=== PATIENT | male | born 1945 | race Caucasian/White ===

== ENCOUNTER 2021-10-21 13:09 | Outpatient (CLI) | payer MEDICARE, OTHER ==
[~2021-10-21 13:09] MED LIST: Magnevist 469MG/ML 20 ML VIAL ONE
== END 2021-10-21 13:10 | disposition home or self-care (01) ==
LOC: CSHMRI 13:09
PROVIDERS: ATTEND Otolaryngology Plastic Surgery within the Head & Neck
DX: Z01.818 Encounter for other preprocedural examination (principal); G44.009 Cluster headache syndrome, unspecified, not intractable; R22.1 Localized swelling, mass and lump, neck; K11.8 Other diseases of salivary glands; M26.609 Unspecified temporomandibular joint disorder, unspecified side; Z20.822 Contact with and (suspected) exposure to COVID-19
CPT/HCPCS: 70553; 80048; 85027; 87811; 93005; 93010; A9579

== ENCOUNTER 2021-10-22 09:47 | Outpatient (CLI) | payer MEDICARE, OTHER | END 2021-10-22 09:48 | disposition home or self-care (01) | LOC: CSHCT 09:47 | PROVIDERS: ATTEND Otolaryngology Plastic Surgery within the Head & Neck | DX: K11.9 Disease of salivary gland, unspecified (principal); R59.0 Localized enlarged lymph nodes | CPT/HCPCS: 70492 ==

== ENCOUNTER 2023-11-24 08:06 | Day surgery (SDC) | payer MEDICARE, OTHER ==
[2023-11-20 14:20] VITALS: BMI 26.3
[2023-11-24 09:15] LABS: Hematocrit 34.5 % (38.8-50.0); Mean Corpuscular HGB CONC 31.9 g/dL (32.0-36.0); Mean Corpuscular Hemoglobin 31.6 pg (27.0-33.0); Mean Corpuscular Volume 99.1 fL (81.2-95.1); Mean Platelet Volume 9.5 fL (7.4-10.4); Platelet Count 128 10x3/uL (150-450); RBC Distribution Width 12.6 % (11.5-14.5); Red Blood Cell (RBC) Count 3.48 10x6/uL (4.32-5.72); White Blood Cell (WBC) Count 4.5 10x3/uL (3.5-10.5)
[2023-11-24] MEDS ORDERED: Ketorolac Tromethamine 30 MG (1 mL) VIAL ONE (10:15)
[2023-11-24] MEDS ORDERED: Acetaminophen 500 MG TAB ONE (10:15)
[2023-11-24] MEDS ORDERED: Bupivacaine/Epinephrine 0.25% 30 ML VIAL ONE (11:43)
[2023-11-24] MEDS ORDERED: PROPOFOL 20 ML ONE (11:49)
[2023-11-24] MEDS ORDERED: Lidocaine 2% PF 5 ML VIAL ONE (11:49)
[2023-11-24] MEDS ORDERED: CEFAZOLIN 2 GM VIAL ONE (12:05)
[2023-11-24] MEDS ORDERED: ePHEDrine Sulfate 50 MG/10 ML VIAL ONE (12:20)
[2023-11-24] MEDS ORDERED: fentaNYL 50 mcg/mL 1 mL Vial ONE (12:24)
== END 2023-11-24 14:24 | disposition home or self-care (01) ==
LOC: CSHSDC 08:06
PROVIDERS: ATTEND Specialist
PROC: 0JH83WZ Insertion of Totally Implantable Vascular Access Device into Abdomen Subcutaneous Tissue and Fascia, Percutaneous Approach (ICD-10-PCS; principal; 2023-11-24)
DX: C85.91 Non-Hodgkin lymphoma, unspecified, lymph nodes of head, face, and neck (principal); C44.329 Squamous cell carcinoma of skin of other parts of face
CPT/HCPCS: 36561; 71045; 85027; 93005; A6258; C1788; J1642; J1885; J2001; J2704; J3010; 36415; 80053; 93010